=== PATIENT | male | born 1960 | race Caucasian/White ===

== ENCOUNTER 2020-11-29 18:29 | Emergency (ER) | payer OTHER, SELFPAY ==
[2020-11-29 18:35] VITALS: BP 192/101; PULSE 86; RESP 12; TEMP 36.4; O2SAT 98; BMI 35.3
[2020-11-29] MEDS: PROPARACAINE 0.5% OPHTH SOL 1 DROPS EYE-RIGHT (18:38)
[2020-11-29] MEDS: FLUORESCEIN 1 MG STRIP EYE-RIGHT (18:38)
[2020-11-29] MEDS: TET,DIPH,PERTUSS(ACELL),VAC/PF 0.5 ML SYRINGE IM (18:52)
[2020-11-29] MEDS: SULFACETAMIDE 10% OPHTH PREPACK 1 BOTTLE MISC (19:31)
[2020-11-29 19:35] VITALS: BP 175/87; PULSE 80; O2SAT 99
--- NOTE | 2020-11-30 01:31 | ED.EYEPROB ---
HPI - Eye Problem General Chief complaint: Eye Problems Stated complaint: something inside right eye Time Seen by Provider: 11/29/20 18:34 Source: patient Mode of arrival: Ambulatory Limitations: no limitations History of Present Illness HPI Narrative: 60-year-old male nonsmoker with noncontributory medical history presents with a chief complaint of a suspected foreign body in his right eye. He states he was in his normal state of health when he was walking and a tasha of wind blew something into his eye. He now has a foreign body sensation but is otherwise well. He denies the use of contacts. He states his tetanus will need to be updated. He is otherwise well and free of complaint. chief complaint: eye pain, eye injury and foreign body Onset (ago): hour(s) Onset description: sudden Duration: constant Location: right eye Eye Symptoms: foreign body sensation Place: street/outdoors Mechanism: direct trauma Severity: mild If Pain, Quality: sharp Associated symptoms: none Treatments Prior to Arrival: none Related Data Patient tetanus UTD: No Home Medications Medication Instructions Recorded Confirmed [UNK BETA COLIN] #0 06/17/10 Allergies Allergy/AdvReac Type Severity Reaction Status Date / Time No Known Drug Allergies Allergy Verified 11/29/20 18:37 Review of Systems Constitutional Constitutional: Denies chills, Denies fatigue, Denies fever(s), Denies frequent falls, Denies lethargy and Denies weakness Eyes Eyes: Denies change in vision, Denies eye discharge, Denies irritation, Denies loss of vision and Reports other ENT Ears, Nose, Mouth, and Throat: Denies change in voice, Denies dizziness, Denies neck pain, Denies sore throat and Denies throat swelling Cardiovascular Cardiovascular: Denies chest pain, Denies irregular heart rhythm, Denies lightheadedness, Denies palpitations, Denies dyspnea, Denies dyspnea on exertion and Denies orthopnea Respiratory Respiratory: Denies cough, Denies dyspnea, Denies dyspnea on exertion and Denies wheezing Gastrointestinal Gastrointestinal: Denies abdominal pain, Denies change in bowel habits, Denies diarrhea, Denies nausea and Denies vomiting Musculoskeletal Musculoskeletal: Denies neck pain and Denies numbness Integumentary/Breasts Skin/Breast: Denies pruritus, Denies erythema, Denies rash and Denies wounds Neurologic Neurologic: Denies behavioral changes, Denies confusion, Denies dizziness, Denies frequent falls, Denies loss of vision, Denies numbness and Denies weakness Psychiatric Psychiatric: Denies anxiety, Denies behavioral changes, Denies confusion, Denies depression, Denies homicidal ideation and Denies suicidal ideation Endocrine Endocrine: Denies fatigue, Denies flushing and Denies palpitations Hematologic/Lymphatic Hematologic/Lymphatic: Denies easy bruising Allergic/Immunologic Allergic/Immunologic: Denies urticaria, Denies throat swelling and Denies wheezing Patient History Social History Smoking Status: Never smoker Smoking Status: Never smoker Substance Use Type: does not use Exam Narrative Exam Narrative: GEN: AOx3 and in mild distress EYES: Pupils are equal, round, and reactive to light and accommodation. Extraoccular muscles are intact bilaterally. There is no subconjunctival hemorrhage or exudate. Foreign body visualized at the 10 o'clock position. Discomfort completely resolved with 1 drop of proparacaine. Mild corneal abrasion and dye uptake with fluorescein. Upper lid everted CHEST: Lungs are clear to auscultation bilaterally and free of wheezes, rales, or rhonchi. Heart rate is regular rhythm, there are no murmurs, clicks, rubs, or gallops. There is no chest wall tenderness. ABD: Abdomen is soft and nontender. There is no guarding or rebound. Bowel sounds are normal in all 4 quadrants. There is no mass or organomegaly. EXT: Full painless ROM of all extremities with no loss of sensation or strength. SKIN: Warm, pink, and dry. No erythema or rash Initial Vital Signs Initial Vital Signs: Vital Signs Temperature 97.5 F L 11/29/20 18:35 Pulse Rate 86 11/29/20 18:35 Respiratory Rate 12 11/29/20 18:35 Blood Pressure 192/101 H 11/29/20 18:35 Pulse Oximetry 98 11/29/20 18:35 Procedures [facility] [place] Procedure Name of Procedure: Foreign body by Side (if applicable): right Technique/Description of procedure performed: Initially I used a sterile Q-tip and was unable to remove the foreign body. Much of it was able to be removed using a blunt-tipped needle, however in the end I needed to use a soo. There may be a very small residual stephen remaining Patient tolerated procedure: Well Complications: none Course Orders Ordered: Discontinued Medications Diphtheria/Tetanus/Acell Pertussis (Tet,Diph,Pertuss(Acell),Vac/Pf 0.5 Ml Syringe) 0.5 ml IM .ONCE ONE Stop: 11/29/20 18:50 Last Admin: 11/29/20 18:52 Dose: 0.5 ml Documented by: ALEXIS Fluorescein Sodium (Fluorescein 1 Mg Strip) 1 mg EYE-RIGHT NOW ONE Stop: 11/29/20 18:35 Last Admin: 11/29/20 18:38 Dose: 1 mg Documented by: ALEXIS Proparacaine HCl (Proparacaine 0.5% Ophth Molly) 1 drops EYE-RIGHT NOW ONE Stop: 11/29/20 18:35 Last Admin: 11/29/20 18:38 Dose: 1 drop Documented by: ALEXIS Sulfacetamide (Sulfacetamide 10% Ophth Prepack) 1 bottle MISC SEEINSTR ONE Stop: 11/29/20 19:14 Last Admin: 11/29/20 19:31 Dose: 1 bottle Documented by: ALEXIS Vital Signs Vital signs: Vital Signs - 8 hr 11/29/20 18:35 11/29/20 19:35 Temperature 97.5 F L Pulse Rate 86 80 Respiratory Rate 12 Blood Pressure 192/101 H 175/87 H Pulse Oximetry 98 99 Discharge Plan Departure Patient Disposition: Home Clinical Impression: Corneal abrasion, Foreign body in eye Instructions: DI for Corneal Foreign Body-Eye Activity Restrictions/Additional Instructions: *You have been diagnosed with [ eye foreign body with corneal abrasion] *What to do: *Take medications as directed *Follow up with [facility], call for an appointment. Let them know you were seen in the Emergency Department and that we ask that you be seen in follow up. They also state that they will see ER patients first thing in the morning ([id number]) *Return to ER if you should have any new, worsening or concerning symptoms Prescriptions: No Action [UNK BETA COLIN] Qty: 0 RF: 0 Referrals: Price Chavez MD [Physician] -
== END 2020-11-29 19:37 | disposition home or self-care (01) ==
PROVIDERS: Emergency Provider Emergency Medicine
DX: T15.01XA Foreign body in cornea, right eye, initial encounter (principal); Z23 Encounter for immunization
CPT/HCPCS: 90471; 99281; 99283; 90715